=== PATIENT | female | born 1940 | race Caucasian/White ===

== ENCOUNTER → 2016-09-08 | Outpatient (CLI) | payer OTHER, MEDICARE ==
--- NOTE | 2016-09-09 14:49 | CT ---
CT Chest Without Contrast 1110 hours Indication: Follow-up nodularity left upper lobe on outside CT imaging from [facility] from August 16, 2016.. Technique: Spiral images were obtained through the chest. Images were reviewed in multiple planes . Dose reduction techniques were utilized. Comparison: Heart scan study from [facility] from August 16, 2016. Findings: Lung and large airways: There is slight decrease in prominence of ill-defined parenchymal nodularity inferior aspect of the left upper lobe anterolaterally seen on series 4 image 108 when compared to th e prior study. This is most compatible with a focus of inflammatory change and/or associated scarring . No significant pulmonary nodules are seen elsewhere within the lung parenchyma. Minimal scarring is noted at the lingula and right middle lobe adjacent to the mediastinum inferiorly bilaterally. There is no consolidation or effusion.. Bronchi: No significant bronchial wall thickening Pleura: Normal. Vessels: The thoracic aorta has a normal contour. There is no aneurysm or dissection. Heart and pericardium: Normal. Mediastinum and karrie: No mass or lymphadenopathy. Chest wall and lower neck: Normal. Limited upper abdomen: No significant abnormality. Skeletal system: Vertebral body heights are well-maintained. There are no lytic or sclerotic osseous lesions. Mild degenerative disk disease is noted mid thoracic spine with anterior marginal osteophyte s. Schmorl's node is present superior endplate of L2 with mild depression centrally. Impression: 1. Nodularity in the inferior aspect left upper lobe anterolaterally appears to correspond with focal parenchymal thickening noted at is probably inflammatory/infectious with possible associated mild sc arring. No additional imaging follow-up is felt to be necessary.
== END ==
LOC: FIMAGING 10:42
PROVIDERS: ATTEND Internal Medicine
DX: R91.1 Solitary pulmonary nodule (principal)

== ENCOUNTER → 2017-06-21 | Outpatient (CLI) | payer OTHER, MEDICARE | LOC: FIMAGING 10:51 | PROVIDERS: ATTEND Internal Medicine | DX: Z12.31 Encounter for screening mammogram for malignant neoplasm of breast (principal) | CPT/HCPCS: G0202 ==

== ENCOUNTER 2017-12-12 21:08 | Emergency (ER) | payer OTHER, MEDICARE ==
[2017-12-12] MEDS ORDERED: SULFAMET/TMP DS PREPACK#2 BTL TAKEHOME ONE (21:44)
--- NOTE | 2017-12-12 21:44 | EDPHY ---
General Time Seen by Provider: 12/12/17 21:37 Narrative: CHIEF COMPLAINT: finger infection HISTORY OF PRESENT ILLNESS: Patient complains of several day history of pain in the right middle finger. This at the tip of the finger only. Mild at 1st. Now moderate to severe. There is "something white under it." Worse with palpation and movement. No numbness or tingling. No warmth. No fever. No pain in the ipsilateral hand, wrist or forearm. No trauma or injury. She does not bite her nails. No other associated complaints or modifying factors. REVIEW OF SYSTEMS: Ten systems reviewed and are negative unless otherwise noted in the HPI PCP: Dr. Anahi Kang SPECIALISTS: None PAST MEDICAL HISTORY: Hypothyroid PAST SURGICAL HISTORY: Appendectomy. No recent surgeries SOCIAL HISTORY: Nonsmoker. Lives here independently with her spouse FAMILY HISTORY: Noncontributory EXAMINATION General Appearance: Alert, no distress Head: normocephalic, atraumatic Eyes: Pupils equal and round, no conjunctival pallor or injection Cardiovascular: Regular rate. Brisk cap refill in all 5 fingers on the right hand. Neurological: A&O, nonfocal, interossei strength symmetric. Skin: Warm and dry, no rash. There is a paronychia on the right middle finger over the ulnar side extending anteriorly to the tuft. Palpable fluctuance. There is no warmth to the D IP or PIP. No lymphangitis, streaking, cellulitis palpable abscess. Extremities: Tenderness of the right middle finger distal phalanx only. There is no subcu emphysema or crepitus. Full flexion extension of the finger including superficialis and profundus. Psychiatric: Mood and affect normal DIFFERENTIAL DIAGNOSES: Including but not limited to paronychia, felon, abscess, septic joint MDM: 9:45 p.m. Paronychia of the right middle finger with possible early felon. There is no evidence of septic joint or cellulitis. No evidence of tenosynovitis or lymphangitis. She has full range of motion. I will anesthetize and drain. 10:10 p.m. Successful drainage of paronychia with approximately 3-4 mL of purulence. Dressing applied. She will be treated with Bactrim prophylactically. We discussed ED precautions, wound care and [id number] anti-inflammatories. She is comfortable this plan and discharged home stable condition. PROCEDURE: Incision and Drainage Consent: verbal Location: Right middle finger, distal phalanx Length: 1 cm Complexity: Simple Anesthesia: Digital block Procedure description: After good anesthesia the area was prepped with Betadine. Using common sterile technique, the area of fluctuance was drained with a 15. Blade. 3-4 mL of purulence expressed. Minimal bleeding. Tolerated well. No complication. Expressed: 3-4 mL of purulence expressed. Wound care: Daily as discussed Follow-up: 48 hr wound check PROCEDURE: Digital Block Indication: Paronychia Consent: Verbal Location: Right middle finger distal phalanx Anesthesia: Lidocaine 1% plain, 0.25% Marcaine plain, 5mL Description: Base of the finger was prepped. The above was infused without difficulty. Tolerated well. Good anesthesia. Complications: None SUPERVISION: This patient was independently evaluated without direct involvement of or examination by the attending physician. - History Smoking Status: Never smoked - Objective Vital Signs: Initial Vital Signs Temperature (C) 98.1 F 12/12/17 21:14 Heart Rate 68 12/12/17 21:14 Respiratory Rate 18 12/12/17 21:14 Blood Pressure 130/58 H 12/12/17 21:14 O2 Sat (%) 96 12/12/17 21:14 O2 Delivery Mode Room Air Allergies/Adverse Reactions: No Known Allergies Allergy (Unverified 12/12/17 21:14) Home Medications: Medication Instructions Recorded Sulfamethox/Tmp 800/160 mg 1 tab PO BID 9 Days tab 12/12/17 [Bactrim Ds] Synthroid 12/12/17 Departure - Departure Disposition: Home, Routine, Self-Care Clinical Impression: Paronychia of finger of right hand Condition: Good Instructions: Sulfamethoxazole/Trimethoprim (By mouth), Paronychia (ED) Additional Instructions: 1. Bactrim as prescribed to completion 2. Daily wound care as discussed. You may leave this dressing in place for up to 48 hr 3. Follow up with primary care physician for wound recheck in 48-72 hours 4. ED precautions as discussed Referrals: Anahi Kang MD [Primary Care Provider] - As per Instructions Prescriptions: Sulfamethox/Tmp 800/160 mg [Bactrim Ds] 1 tab PO BID 9 Days tab
[2017-12-12 23:10] VITALS: BP 127/57
== END 2017-12-12 22:50 | disposition home or self-care (01) ==
PROC: 0H9FXZZ Drainage of Right Hand Skin, External Approach (ICD-10-PCS; principal; 2017-12-12)
DX: L03.011 Cellulitis of right finger (principal)

== ENCOUNTER → 2018-06-23 | Outpatient (CLI) | payer OTHER, MEDICARE | LOC: FIMAGING 09:33 | PROVIDERS: ATTEND Internal Medicine | DX: Z13.820 Encounter for screening for osteoporosis (principal); M85.89 Other specified disorders of bone density and structure, multiple sites; Z78.0 Asymptomatic menopausal state; Z79.899 Other long term (current) drug therapy ==

== ENCOUNTER → 2018-07-19 | Outpatient (CLI) | payer OTHER, MEDICARE | LOC: FIMAGING 14:35 | PROVIDERS: ATTEND Internal Medicine | DX: Z12.31 Encounter for screening mammogram for malignant neoplasm of breast (principal) ==